=== PATIENT | female | born 1960 | race Two or more races ===

== ENCOUNTER 2017-12-29 11:18 | Emergency (ER) | payer OTHER ==
[~2017-12-29] VITALS: Ht 172.7 cm; Wt 99.8 kg
[~2017-12-29 11:18] MED LIST: CENESTIN0.45 MG; COZAAR25 MG PO; MORINGA; OMEGA-31000 MG; SINGULAIR10 MG; VENALIV CAPLET1 EACH; ZOLOFT25 MG; [UNRECOGNIZED DRUG - OTHER]
== END 2017-12-29 14:27 | disposition home or self-care (01) ==
LOC: ER 11:18
DX: K21.9 Gastro-esophageal reflux disease without esophagitis (principal)